=== PATIENT | female | born 1990 | race Caucasian/White ===

== ENCOUNTER 2021-09-06 16:40 | Emergency (ER) | payer OTHER ==
[~2021-09-06] VITALS: Ht 157.5 cm; Wt 67.1 kg
[2021-09-06 16:48] VITALS: BP 168/70
[2021-09-06] MEDS ORDERED: KETOROLAC 30 MG/ML VIAL IM ONE (18:10)
[2021-09-06] MEDS ORDERED: KETOROLAC 30 MG/ML VIAL ONE (19:11)
[2021-09-06] MEDS ORDERED: IBUP-2213 PO (19:49)
[2021-09-06] MEDS ORDERED: LID5T TP (19:49)
[2021-09-06] MEDS ORDERED: CYCL-711 PO (19:49)
[2021-09-06 20:01] VITALS: BP 168/70
--- NOTE | 2021-09-06 20:01 | NUR ---
Patient discharged with v/s stable. Written and verbal after care instructions given and explained. Patient verbalized understanding. Ambulatory with steady gait. All questions addressed prior to discharge. Advised to follow up with PMD.
== END 2021-09-06 20:01 | disposition home or self-care (01) ==
LOC: MED 16:40
DX: S39.012A Strain of muscle, fascia and tendon of lower back, initial encounter (principal); X58.XXXA Exposure to other specified factors, initial encounter; Y93.89 Activity, other specified; Y92.89 Other specified places as the place of occurrence of the external cause; Y99.8 Other external cause status
CPT/HCPCS: 81002; 81025; 96372; 99283; J1885

== ENCOUNTER 2022-08-30 22:46 | Emergency (ER) | payer OTHER ==
[~2022-08-30] VITALS: Ht 157.5 cm; Wt 66.2 kg
[~2022-08-30 22:46] MED LIST: CYCL-711 PO; IBUP-2213 PO; LID5T TP
[2022-08-30 22:55] VITALS: BP 110/76
--- NOTE | 2022-08-30 23:19 | NUR ---
Dr. Burroughs examining patient.
[2022-08-30] MEDS ORDERED: KETOROLAC 60 MG/2 ML VIAL IM ONE (23:30)
[2022-08-30] MEDS ORDERED: CYCLOBENZAPRINE 10 MG TAB PO ONE (23:30)
--- NOTE | 2022-08-31 00:27 | NUR ---
URINE PREG NEG XRAY AWARE. PENDING XRAY
--- NOTE | 2022-08-31 00:44 | NUR ---
PT TAKEN TO RADIOLOGY
[2022-08-31] MEDS ORDERED: CYCL-711 PO (01:07)
[2022-08-31] MEDS ORDERED: KETO10TA2 PO (01:07)
[2022-08-31 01:12] VITALS: BP 110/76
--- NOTE | 2022-08-31 01:12 | NUR ---
The patient's care was reviewed and supervised by Lacey Vance RN.
== END 2022-08-31 01:12 | disposition home or self-care (01) ==
LOC: MED 22:46
DX: M54.50 Low back pain, unspecified (principal)
CPT/HCPCS: 72110; 81002; 81025; 96372; 99283; J1885

== ENCOUNTER 2022-12-17 20:10 | Emergency (ER) | payer OTHER ==
[~2022-12-17] VITALS: Ht 157.5 cm; Wt 63.5 kg
[~2022-12-17 20:10] MED LIST changes: +KETO10TA2 PO
[2022-12-17 20:37] VITALS: BP 128/72
[2022-12-17 22:12] VITALS: BP 132/72
--- NOTE | 2022-12-17 22:15 | NUR ---
PATIENT STABLE DC HOME VITALS SIGNS IN NORMAL LIMITS ALL DC INSTRUCTION GAVE AND EXPLAINED QWE RECOMMEND TO FOLLOW UP WITH PCP IF THE SYMPTOMS GET WORSE
== END 2022-12-17 22:12 | disposition home or self-care (01) ==
LOC: MED 20:10
DX: U07.1 COVID-19 (principal); R05.9 Cough, unspecified
CPT/HCPCS: 99281